=== PATIENT | female | born 1955 | race Caucasian/White ===

== ENCOUNTER 2018-10-29 23:26 | Emergency (ER) | payer MEDICARE, BC ==
[~2018-10-29] VITALS: Ht 162.6 cm; Wt 70.3 kg
--- NOTE | 2018-10-29 23:34 | NUR ---
PT BIB SELF. COMP OF HAVING "EPIGASTRIC PAIN SINCE YESTERDAY AND FACIAL NUMBNESS THAT STARTED ABOUT 30 MINUTES AGO". PT AOX4. AMBULATORY W.STEADY GAIT. NO SOB NOTED .NO ACUTE DISTRESS AT THIS TIME. AWAITING MD ISLAS.
[2018-10-30 00:13] LABS: BASOPHILS % (AUTO) 0.6 % (0.0-2.0); EOSINOPHILS % (AUTO) 2.6 % (0.0-6.0); HEMATOCRIT 41 % (33-45); LYMPHOCYTES # (AUTO) 2.6 /CMM (0.8-4.8); LYMPHOCYTES % (AUTO) 46.4 % (20.0-44.0); MEAN CORPUSCULAR HGB CONC 34 g/dl (31.0-36.0); MEAN CORPUSCULAR VOLUME 97 fL (82-100); MONOCYTES # (AUTO) 0.4 /CMM (0.1-1.30); MONOCYTES % (AUTO) 7.4 % (2.0-12.0); NEUTROPHILS # (AUTO) 2.4 /CMM (1.8-8.9); PLATELET COUNT (AUTO) 271 /CMM (150-450); RED BLOOD CELL COUNT(AUTO) 4.23 MIL/uL (4.0-5.2); WHITE BLOOD COUNT (AUTO) 5.6 K/uL (4.3-11.0)
--- NOTE | 2018-10-30 00:15 | NUR ---
RADIO AT BEDSIDE.
[2018-10-30 00:32] LABS: CALCIUM, SERUM 9.4 mg/dL (8.5-10.1); CARBON DIOXIDE 29 mmol/L (21-32); CHLORIDE 99 mmol/L (98-107); CREATININE 0.7 mg/dL (0.6-1.3); GLUCOSE 191 mg/dL (74-106); POTASSIUM 3.9 mmol/L (3.5-5.1); SODIUM SERUM 136 mmol/L (136-145); UREA NITROGEN, BLOOD 17 mg/dL (7-18)
[2018-10-30 00:37] LABS: ALANINE AMINOTRANSFERASE 44 U/L (12-78); ALBUMIN 3.9 g/dL (3.4-5.0); ALKALINE PHOSPHATASE 97 U/L (46-116); ASPARTATE AMINOTRANSFERASE 32 U/L (15-37); BILIRUBIN,TOTAL 0.3 mg/dL (0.2-1.0); LIPASE 257 U/L (73-393); TOTAL PROTEIN, SERUM 7.5 g/dL (6.4-8.2)
--- NOTE | 2018-10-30 00:39 | NUR ---
Patient is resting comfortably in bed with eyes closed. Easily aroused. VSS
[2018-10-30] MEDS ORDERED: LIDOCAINE VISCOUS 2% UD 15 ML UDC MM ONE (01:00)
[2018-10-30] MEDS ORDERED: MAG HYDROX/AL HYDROX/SIMETH 30 ML UDC PO ONE (01:00)
[2018-10-30] MEDS ORDERED: MAG HYDROX/AL HYDROX/SIMETH 30 ML UDC ONE (01:02)
[2018-10-30] MEDS ORDERED: LIDOCAINE VISCOUS 2% UD 15 ML UDC ONE (01:02)
[2018-10-30 01:27] VITALS: BP 154/86
== END 2018-10-30 01:42 | disposition home or self-care (01) ==
LOC: ER 23:27
DX: K29.70 Gastritis, unspecified, without bleeding (principal); E11.9 Type 2 diabetes mellitus without complications; Z98.890 Other specified postprocedural states; Z88.8 Allergy status to other drugs, medicaments and biological substances
CPT/HCPCS: 36415; 71045; 80048; 80076; 82962; 83690; 84484; 85025; 85730; 93005; 99284; A4606; Z7610

== ENCOUNTER 2018-12-05 00:33 | Emergency (ER) | payer MEDICARE, BC ==
[~2018-12-05] VITALS: Ht 162.6 cm; Wt 68.0 kg
--- NOTE | 2018-12-05 00:47 | NUR ---
TO ER BED 7 C/C OF GENERALIZED WEAKNESS SINCE "11 O'CLOCK TONIGHT." PT APPEARS ANXIOUS. AA/OX 4. MY HANDS AND FEET ARE SHAKEY, AND MY JAW IS STIFF." NO S/S SOB. SKIN PINK, WARM, DRY. EQUAL [employer] [facility] AND FACIAL SYMMETRY. ABLE TO MOVE ALL EXTREMITIES WELL. AMBULATED TO BED WITH STABLE GAIT. NAD. VSS. STABLE CONDITION. WILL CONTINUE TO MONITOR.
[2018-12-05 01:30] VITALS: BP 132/80
--- NOTE | 2018-12-05 01:43 | NUR ---
AMBULATED TO THE BATHROOM WITH STABLE GAIT. NAD. VSS. STABLE CONDITION.
== END 2018-12-05 01:52 | disposition home or self-care (01) ==
LOC: ER 00:34
DX: F41.9 Anxiety disorder, unspecified (principal); E11.9 Type 2 diabetes mellitus without complications; Z96.651 Presence of right artificial knee joint; Z96.611 Presence of right artificial shoulder joint; Z60.2 Problems related to living alone; Z88.8 Allergy status to other drugs, medicaments and biological substances
CPT/HCPCS: 82962-TC

== ENCOUNTER 2019-11-13 13:48 | Emergency (ER) | payer MEDICARE, BC ==
[~2019-11-13] VITALS: Ht 157.5 cm; Wt 65.3 kg
[2019-11-13 14:24] LABS: BASOPHILS % (AUTO) 0.3 % (0.0-2.0); EOSINOPHILS % (AUTO) 1.2 % (0.0-6.0); HEMATOCRIT 39 % (33-45); HEMOGLOBIN 13.4 g/dL (11.5-14.8); LYMPHOCYTES # (AUTO) 1.6 /CMM (0.8-4.8); LYMPHOCYTES % (AUTO) 26.3 % (20.0-44.0); MEAN CORPUSCULAR HGB CONC 34 g/dl (31.0-36.0); MEAN CORPUSCULAR VOLUME 97 fL (82-100); MONOCYTES # (AUTO) 0.4 /CMM (0.1-1.30); NEUTROPHILS % (AUTO) 66.2 % (43.0-81.0); PLATELET COUNT (AUTO) 252 /CMM (150-450); RED BLOOD CELL COUNT(AUTO) 4.04 MIL/uL (4.0-5.2)
[2019-11-13 14:31] LABS: CALCIUM, SERUM 9.3 mg/dL (8.5-10.1); CARBON DIOXIDE 29 mmol/L (21-32); CHLORIDE 103 mmol/L (98-107); CREATININE 0.6 mg/dL (0.6-1.3); GLUCOSE 118 mg/dL (74-106); POTASSIUM 3.8 mmol/L (3.5-5.1); SODIUM SERUM 139 mmol/L (136-145); UREA NITROGEN, BLOOD 12 mg/dL (7-18)
[2019-11-13] MEDS ORDERED: IBUP-1957 PO (14:40)
[2019-11-13] MEDS ORDERED: CHOL200038 PO (14:40)
[2019-11-13] MEDS ORDERED: MULT-447 PO (14:40)
[2019-11-13] MEDS ORDERED: IPRATROPIUM NEB FS 0.5 MG/2.5 ML AMPUL.NEB ONE (14:53)
[2019-11-13] MEDS ORDERED: ALBUTEROL FS 2.5 MG/3 ML VIAL.NEB ONE (14:53)
[2019-11-13] MEDS ORDERED: ALBUTEROL FS 2.5 MG/3 ML VIAL.NEB NEB ONE (15:00)
[2019-11-13] MEDS ORDERED: IPRATROPIUM NEB FS 0.5 MG/2.5 ML AMPUL.NEB NEB ONE (15:00)
--- NOTE | 2019-11-13 15:08 | NUR ---
RT Pt became extremely anxious and shakey 8 minutes into HHN tx. Pt requested to stop HHN tx and refuse to continue. Breathe sounds have improved with no SOB noted. Addendum: 11/13/19 at 1521 by MIAH JAIME RT Amended: Links added.
--- NOTE | 2019-11-13 15:24 | NUR ---
NAD Patient discharged to home in stable condition. Written and verbal after care instructions given. Patient verbalizes understanding of instruction.
[2019-11-13 15:25] VITALS: BP 122/70
== END 2019-11-13 15:26 | disposition home or self-care (01) ==
LOC: ER 13:48
DX: J20.9 Acute bronchitis, unspecified (principal); E11.9 Type 2 diabetes mellitus without complications; Z98.890 Other specified postprocedural states; Z88.6 Allergy status to analgesic agent; Z60.2 Problems related to living alone; Z79.899 Other long term (current) drug therapy
CPT/HCPCS: 36415; 71045-TC; 80048-TC; 82962-TC; 84484-TC; 85025-TC

== ENCOUNTER 2020-07-25 17:32 | Emergency (ER) | payer MEDICARE, BC ==
[~2020-07-25] VITALS: Ht 160 cm; Wt 70.3 kg
[~2020-07-25 17:32] MED LIST: CHOL200038 PO; IBUP-1957 PO; MULT-447 PO
[2020-07-25] MEDS ORDERED: IV NS 0.9% 1,000 ML BAG IV ONE (18:00)
[2020-07-25] MEDS ORDERED: ACETAMINOPHEN ES 500 MG TABLET PO ONE (18:00)
[2020-07-25 18:26] LABS: BASOPHILS % (AUTO) 0.9 % (0.0-2.0); EOSINOPHILS % (AUTO) 0.6 % (0.0-6.0); HEMATOCRIT 41 % (33-45); LYMPHOCYTES % (AUTO) 29.6 % (20.0-44.0); MEAN CORPUSCULAR HGB CONC 34 g/dl (31.0-36.0); MEAN CORPUSCULAR VOLUME 97 fL (82-100); MONOCYTES % (AUTO) 5.4 % (2.0-12.0); NEUTROPHILS % (AUTO) 63.5 % (43.0-81.0); PLATELET COUNT (AUTO) 265 /CMM (150-450); RED BLOOD CELL COUNT(AUTO) 4.26 MIL/uL (4.0-5.2)
[2020-07-25 18:27] LABS: BASOPHILS # (AUTO) 0.1 /CMM (0.0-0.2); LYMPHOCYTES # (AUTO) 1.8 /CMM (0.8-4.8); MONOCYTES # (AUTO) 0.3 /CMM (0.1-1.30); NEUTROPHILS # (AUTO) 3.8 /CMM (1.8-8.9)
[2020-07-25] MEDS ORDERED: FAMOTIDINE/PF INJ 20 MG/2 ML VIAL IV ONE ×2 (18:30→18:48)
[2020-07-25] MEDS ORDERED: KETOROLAC TROMETHAMINE INJ 30 MG/ML VIAL IV ONE (18:30)
[2020-07-25] MEDS ORDERED: METOCLOPRAMIDE HCL 10 MG/2 ML VIAL IV ONE (18:30)
[2020-07-25 18:43] LABS: ALANINE AMINOTRANSFERASE 51 U/L (12-78); ALBUMIN 4.4 g/dL (3.4-5.0); ALKALINE PHOSPHATASE 101 U/L (46-116); ASPARTATE AMINOTRANSFERASE 32 U/L (15-37); BILIRUBIN,DIRECT 0.1 mg/dL (0.0-0.2); BILIRUBIN,TOTAL 0.4 mg/dL (0.2-1.0); CALCIUM, SERUM 9.9 mg/dL (8.5-10.1); CARBON DIOXIDE 26 mmol/L (21-32); CHLORIDE 99 mmol/L (98-107); CREATININE 0.7 mg/dL (0.6-1.3); GLUCOSE 130 mg/dL (74-106); POTASSIUM 3.7 mmol/L (3.5-5.1); SODIUM SERUM 134 mmol/L (136-145); TOTAL PROTEIN, SERUM 7.5 g/dL (6.4-8.2); UREA NITROGEN, BLOOD 11 mg/dL (7-18)
[2020-07-25] MEDS ORDERED: METOCLOPRAMIDE HCL 10 MG/2 ML VIAL ONE (18:48)
[2020-07-25] MEDS ORDERED: ACETAMINOPHEN ES 500 MG TABLET ONE (18:48)
[2020-07-25] MEDS ORDERED: KETOROLAC TROMETHAMINE 15 MG/ML VIAL ONE (18:48)
--- NOTE | 2020-07-25 19:05 | NUR ---
REPORT RECEIVED FROM [facility] RN
--- NOTE | 2020-07-25 19:19 | NUR ---
PT BIB SELF C/O HEADACHE, SOB, BACK PAIN, CHEST "DISCOMFORT", NAUSEA, POOR APPETITE TODAY. RESP APPEARS EVEN UNLABORED. SKIN WARM DRY. AMBULATORY STEADY GAIT. NAD NOTED.
--- NOTE | 2020-07-25 19:26 | NUR ---
AMBULATED TO RESTROOM WITH STEADY GAIT
--- NOTE | 2020-07-25 19:30 | NUR ---
URINE COLLECTED AND SENT TO LAB
--- NOTE | 2020-07-25 19:33 | NUR ---
PT AAOX4, VSS, RESPIRATIONS EVEN AND UNLABORED ON RA W/ NAD NOTED. 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 CALL LIGHT WITHIN REACH. WILL CONTINUE TO MONITOR FOR SAFETY.
[2020-07-25 19:49] LABS: APPEARANCE,URINE Clear (CLEAR); BILIRUBIN,URINE Negative (NEGATIVE); BLOOD, URINE Trace-intact Ery/uL (NEGATIVE); COLOR,URINE Yellow (YELLOW); KETONES,URINE Negative (NEGATIVE); LEUKOCYTE ESTERASE ,URINE Negative (NEGATIVE); NITRITE, URINE Negative (NEGATIVE); PROTEIN,URINE Negative (NEGATIVE); UGLUCOSE Negative (NEGATIVE); UROBILINOGEN,URINE 0.2 EU/dL (0.2)
[2020-07-25 20:10] LABS: BACTERIA,URINE Few /HPF (None Seen); RBC,URINE 0-2 /HPF (0-2); SQUAMOUS EPITHELIAL CELL,UR Few /HPF (None Seen); WBC,URINE 0-2 /HPF (0-3)
[2020-07-25 20:19] VITALS: BP 151/84
--- NOTE | 2020-07-25 20:19 | NUR ---
Patient discharged to home in stable condition. Written and verbal after care instructions given. Patient verbalizes understanding of instruction.IV removed. Catheter intact and site benign. Pressure and 4x4 applied to site. No bleeding noted.
== END 2020-07-25 20:20 | disposition home or self-care (01) ==
LOC: ER 17:43
DX: G43.909 Migraine, unspecified, not intractable, without status migrainosus (principal); Z20.828 Contact with and (suspected) exposure to other viral communicable diseases; R06.02 Shortness of breath; I49.3 Ventricular premature depolarization; F17.200 Nicotine dependence, unspecified, uncomplicated; E11.9 Type 2 diabetes mellitus without complications
CPT/HCPCS: 36415; 71045; 80048; 80076; 81001; 83605; 84145; 84484; 85025; 85378; 85730; 87040 ×2; 87086; 93005; 96361; 96374; 96375; 99285; J1885; J2765; J3490; J7030; 81000-TC; C9803-CS; U0003-CS

== ENCOUNTER 2020-10-29 17:19 | Emergency (ER) | payer MEDICARE, BC ==
[~2020-10-29] VITALS: Ht 160 cm; Wt 63.5 kg
--- NOTE | 2020-10-29 17:59 | NUR ---
EKG NOTED BY DR SMITH, BACK TO WR TO WAIT FOR ER BED
[2020-10-29] MEDS ORDERED: KETOROLAC TROMETHAMINE 15 MG/ML VIAL ONE (18:57)
[2020-10-29] MEDS ORDERED: LORAZEPAM 0.5 MG TABLET ONE (18:58)
[2020-10-29] MEDS ORDERED: LORAZEPAM 1 MG TABLET PO ONE (19:00)
[2020-10-29] MEDS ORDERED: KETOROLAC TROMETHAMINE INJ 30 MG/ML VIAL IM ONE (19:00)
--- NOTE | 2020-10-29 19:11 | NUR ---
Patient discharged to home in stable condition. Written and verbal after care instructions given. Patient verbalizes understanding of instruction.
[2020-10-29 19:12] VITALS: BP 122/75
== END 2020-10-29 19:13 | disposition home or self-care (01) ==
LOC: ER 17:22
DX: G43.909 Migraine, unspecified, not intractable, without status migrainosus (principal); E11.9 Type 2 diabetes mellitus without complications; F41.9 Anxiety disorder, unspecified; F17.200 Nicotine dependence, unspecified, uncomplicated; Z98.890 Other specified postprocedural states; Z88.8 Allergy status to other drugs, medicaments and biological substances; Z60.2 Problems related to living alone; Z79.899 Other long term (current) drug therapy
CPT/HCPCS: 93005; 96372; 99283; J1885

== ENCOUNTER 2021-06-11 06:21 | Emergency (ER) | payer MEDICARE, BC ==
[~2021-06-11] VITALS: Ht 157.5 cm; Wt 61.2 kg
--- NOTE | 2021-06-11 06:35 | NUR ---
PATIENT BIBSELF WITH C/O "FEELING HOT AND COLD ON LEFT CHEEK AND LEFT EAR SINCE LAST NIGHT". NO FACIAL DROOP OR SLURRED SPEECH NOTED. AMBULATORY W/ STEADY GAITS. PATIENT IS A/O X 4, RR EVEN AND UNLABORED NO SIGNS OF SOB NOTED. PATIENT CONNCETED TO CARDAIC MONITOR AND POX.
[2021-06-11] MEDS ORDERED: MAG HYDROX/AL HYDROX/SIMETH 30 ML UDC ONE (06:57)
[2021-06-11] MEDS: MAG HYDROX/AL HYDROX/SIMETH 30 ML UDC PO ONE (06:59)
[2021-06-11 07:09] LABS: BASOPHILS % (AUTO) 0.2 % (0.0-2.0); HEMATOCRIT 38 % (33-45); HEMOGLOBIN 13.2 g/dL (11.5-14.8); LYMPHOCYTES # (AUTO) 1.8 K/uL (0.8-4.8); LYMPHOCYTES % (AUTO) 25.4 % (20.0-44.0); MEAN CORPUSCULAR HGB CONC 35 g/dl (31.0-36.0); MEAN CORPUSCULAR VOLUME 97 fL (82-100); MONOCYTES # (AUTO) 0.4 K/uL (0.1-1.30); MONOCYTES % (AUTO) 5.1 % (2.0-12.0); NEUTROPHILS # (AUTO) 4.7 K/uL (1.8-8.9); NEUTROPHILS % (AUTO) 68.3 % (43.0-81.0); PLATELET COUNT (AUTO) 233 K/uL (150-450); RED BLOOD CELL COUNT(AUTO) 3.94 MIL/uL (4.0-5.2); WHITE BLOOD COUNT (AUTO) 6.9 K/uL (4.3-11.0)
[2021-06-11 07:13] LABS: CALCIUM, SERUM 9.1 mg/dL (8.5-10.1); CARBON DIOXIDE 28 mmol/L (21-32); CHLORIDE 102 mmol/L (98-107); CREATININE 0.9 mg/dL (0.6-1.3); GLUCOSE 144 mg/dL (74-106); POTASSIUM 3.8 mmol/L (3.5-5.1); SODIUM SERUM 137 mmol/L (136-145); UREA NITROGEN, BLOOD 16 mg/dL (7-18)
[2021-06-11 07:20] LABS: ALANINE AMINOTRANSFERASE 61 U/L (12-78); ALBUMIN 3.7 g/dL (3.4-5.0); ALKALINE PHOSPHATASE 82 U/L (46-116); ASPARTATE AMINOTRANSFERASE 32 U/L (15-37); BILIRUBIN,DIRECT 0.1 mg/dL (0.0-0.2); BILIRUBIN,TOTAL 0.4 mg/dL (0.2-1.0); LIPASE 101 U/L (73-393); TOTAL PROTEIN, SERUM 6.7 g/dL (6.4-8.2)
[2021-06-11] MEDS ORDERED: METOCLOPRAMIDE HCL 10 MG/2 ML VIAL ONE (07:36)
[2021-06-11] MEDS ORDERED: IBUPROFEN 600 MG TABLET ONE (07:36)
[2021-06-11] MEDS: METOCLOPRAMIDE HCL 10 MG/2 ML VIAL IV ONE (07:40)
[2021-06-11] MEDS: IBUPROFEN 600 MG TABLET PO ONE (07:40)
--- NOTE | 2021-06-11 08:26 | NUR ---
PATIENT A/OX4, BREATHING EVEN AND UNLABORED, NO SOB NOTED, NEEDS ATTENDED. IV removed. Catheter intact and site benign. Pressure and 4x4 applied to site. No bleeding noted.Patient discharged to home in stable condition. Written and verbal after care instructions given. Patient verbalizes understanding of instruction.
[2021-06-11 08:27] VITALS: BP 111/72
== END 2021-06-11 08:28 | disposition home or self-care (01) ==
LOC: ER 06:30
DX: R51.9 Headache, unspecified (principal); R10.13 Epigastric pain; R42 Dizziness and giddiness; R00.1 Bradycardia, unspecified; E11.9 Type 2 diabetes mellitus without complications; F41.9 Anxiety disorder, unspecified; F17.200 Nicotine dependence, unspecified, uncomplicated; Z98.890 Other specified postprocedural states; Z88.6 Allergy status to analgesic agent; Z60.2 Problems related to living alone; Z79.899 Other long term (current) drug therapy
CPT/HCPCS: 36415; 80048; 80076; 83690; 84484; 85025; 93005; 96374; 99284; J2765

== ENCOUNTER 2021-09-11 23:54 | Emergency (ER) | payer MEDICARE, BC ==
[~2021-09-11] VITALS: Ht 157.5 cm; Wt 65.3 kg
--- NOTE | 2021-09-12 00:03 | NUR ---
BIB SELF C/O HYPERTENSION. STATES HER BASLINE SYSTOLIC BP IS BETWEEN 100-110 AND THAT HER BP WAS IN THE 130S SYSTOLIC AND WAS CONCERNED. PT IS PRESCRIBED PROPANOLOL AND TOOK 15MG TOTAL TODAY. PT PLACED ON A MONITOR BP 136/62. BREATHING IS EVEN AND UNLABORED DENIES C/P SOB AND N/V.
[2021-09-12 00:29] LABS: HEMOGLOBIN 13.4 g/dL (11.5-14.8); MEAN CORPUSCULAR HGB CONC 34 g/dl (31.0-36.0)
[2021-09-12 00:33] LABS: HEMATOCRIT 39 % (33-45); LYMPHOCYTES % (AUTO) 47.5 % (20.0-44.0); MEAN CORPUSCULAR VOLUME 96 fL (82-100); MONOCYTES % (AUTO) 5.9 % (2.0-12.0); NEUTROPHILS % (AUTO) 45.2 % (43.0-81.0); PLATELET COUNT (AUTO) 260 K/uL (150-450); RED BLOOD CELL COUNT(AUTO) 4.07 MIL/uL (4.0-5.2); WHITE BLOOD COUNT (AUTO) 5.2 K/uL (4.3-11.0)
[2021-09-12 00:34] LABS: BASOPHILS % (AUTO) 0.5 % (0.0-2.0); EOSINOPHILS % (AUTO) 0.9 % (0.0-6.0); LYMPHOCYTES # (AUTO) 2.5 K/uL (0.8-4.8); MONOCYTES # (AUTO) 0.3 K/uL (0.1-1.30); NEUTROPHILS # (AUTO) 2.4 K/uL (1.8-8.9)
[2021-09-12 00:43] LABS: CALCIUM, SERUM 9.4 mg/dL (8.5-10.1); CARBON DIOXIDE 31 mmol/L (21-32); CHLORIDE 101 mmol/L (98-107); CREATININE 0.8 mg/dL (0.6-1.3); GLUCOSE 147 mg/dL (74-106); POTASSIUM 3.9 mmol/L (3.5-5.1); SODIUM SERUM 139 mmol/L (136-145); UREA NITROGEN, BLOOD 25 mg/dL (7-18)
--- NOTE | 2021-09-12 01:26 | NUR ---
Patient discharged to home in stable condition. Written and verbal after care instructions given. Patient verbalizes understanding of instruction. All V/S stable at time of discharge.
[2021-09-12 01:30] VITALS: BP 110/63
== END 2021-09-12 01:31 | disposition admitted as inpatient to this hospital (09) ==
LOC: ER 23:57
DX: I10 Essential (primary) hypertension (principal); F41.9 Anxiety disorder, unspecified; E11.9 Type 2 diabetes mellitus without complications; F17.200 Nicotine dependence, unspecified, uncomplicated; Z98.890 Other specified postprocedural states; Z88.8 Allergy status to other drugs, medicaments and biological substances; Z60.2 Problems related to living alone; Z79.899 Other long term (current) drug therapy
CPT/HCPCS: 36415; 71045-TC; 80048-TC; 84484-TC; 85025-TC

== ENCOUNTER 2023-07-07 07:01 | Emergency (ER) | payer MEDICARE, BC ==
[~2023-07-07] VITALS: Ht 157.5 cm; Wt 63.5 kg
[2023-07-07] MEDS ORDERED: IV NS 0.9% 1,000 ML BAG IV ONE (08:00)
[2023-07-07 08:19] LABS: BASOPHILS % (AUTO) 0.3 % (0.0-2.0); EOSINOPHILS # (AUTO) 0.1 K/uL (0.0-0.7); EOSINOPHILS % (AUTO) 1.6 % (0.0-6.0); HEMATOCRIT 37 % (33-45); HEMOGLOBIN 12.5 g/dL (11.5-14.8); LYMPHOCYTES # (AUTO) 1.4 K/uL (0.8-4.8); LYMPHOCYTES % (AUTO) 27.1 % (20.0-44.0); MEAN CORPUSCULAR HEMOGLOBIN 33 PG (26.0-33.0); MEAN CORPUSCULAR HGB CONC 34 g/dl (31.0-36.0); MEAN CORPUSCULAR VOLUME 96 fL (82-100); MONOCYTES # (AUTO) 0.3 K/uL (0.1-1.30); MONOCYTES % (AUTO) 5.8 % (2.0-12.0); NEUTROPHILS # (AUTO) 3.4 K/uL (1.8-8.9); NEUTROPHILS % (AUTO) 65.2 % (43.0-81.0); PLATELET COUNT (AUTO) 308 K/uL (150-450); RED BLOOD CELL COUNT(AUTO) 3.83 MIL/uL (4.0-5.2); RED CELL DISTRIBUTION WIDTH 12.2 % (11.5-15.0); WHITE BLOOD COUNT (AUTO) 5.2 K/uL (4.3-11.0)
[2023-07-07 08:30] LABS: CALCIUM, SERUM 9.4 mg/dL (8.5-10.1); CARBON DIOXIDE 27 mmol/L (21-32); CHLORIDE 99 mmol/L (98-107); CREATININE 0.7 mg/dL (0.6-1.3); GLUCOSE 185 mg/dL (74-106); POTASSIUM 3.9 mmol/L (3.5-5.1); SODIUM SERUM 135 mmol/L (136-145); UREA NITROGEN, BLOOD 18 mg/dL (7-18)
[2023-07-07 09:11] LABS: APPEARANCE,URINE CLEAR (CLEAR); BILIRUBIN,URINE NEGATIVE (NEGATIVE); BLOOD, URINE TRACE-INTA Ery/uL (NEGATIVE); COLOR,URINE YELLOW (YELLOW); KETONES,URINE NEGATIVE (NEGATIVE); LEUKOCYTE ESTERASE ,URINE NEGATIVE (NEGATIVE); NITRITE, URINE NEGATIVE (NEGATIVE); PROTEIN,URINE NEGATIVE (NEGATIVE); UGLUCOSE NEGATIVE (NEGATIVE); UROBILINOGEN,URINE 0.2 EU/dL (0.2)
[2023-07-07 09:18] LABS: ADD URINE CULTURE NO; BACTERIA,URINE Rare /HPF (None Seen); RBC,URINE 0-2 /HPF (0-2); SQUAMOUS EPITHELIAL CELL,UR Few /HPF (None Seen); WBC,URINE 0-2 /HPF (0-3)
[2023-07-07 10:52] VITALS: BP 122/62; TEMP 98.1; O2SAT 100
== END 2023-07-07 11:00 | disposition home or self-care (01) ==
LOC: ER 07:01
DX: E11.65 Type 2 diabetes mellitus with hyperglycemia (principal); I10 Essential (primary) hypertension; R07.89 Other chest pain; F41.9 Anxiety disorder, unspecified; F17.200 Nicotine dependence, unspecified, uncomplicated; Z98.890 Other specified postprocedural states; Z79.899 Other long term (current) drug therapy; Z60.2 Problems related to living alone; Z88.1 Allergy status to other antibiotic agents
CPT/HCPCS: 99285; 96360; 71045; 93005; 85025; 80048; 81001; 36415; 84484 ×2; J7030

== ENCOUNTER 2023-09-16 06:10 | Emergency (ER) | payer MEDICARE, BC ==
[~2023-09-16] VITALS: Ht 157.5 cm; Wt 61.2 kg
[2023-09-16] MEDS ORDERED: KETOROLAC TROMETHAMINE 15 MG/ML VIAL ONE (06:52)
[2023-09-16] MEDS ORDERED: KETOROLAC TROMETHAMINE INJ 30 MG/ML VIAL IM ONE (07:00)
[2023-09-16] MEDS ORDERED: IBUP-1955 PO (07:10)
[2023-09-16 07:26] VITALS: TEMP 98.8
[2023-09-16] MEDS ORDERED: IV NS 0.9% 1,000 ML BAG IV ONE (08:00)
[2023-09-16 08:05] VITALS: BP 121/82; O2SAT 99
== END 2023-09-16 08:06 | disposition home or self-care (01) ==
LOC: ER 06:19
DX: R51.9 Headache, unspecified (principal); I10 Essential (primary) hypertension; E11.9 Type 2 diabetes mellitus without complications; F41.9 Anxiety disorder, unspecified; F17.200 Nicotine dependence, unspecified, uncomplicated; Z98.890 Other specified postprocedural states; Z79.899 Other long term (current) drug therapy; Z60.2 Problems related to living alone; Z88.1 Allergy status to other antibiotic agents
CPT/HCPCS: 99283; 96372; 93005; J1885

== ENCOUNTER 2023-09-30 17:54 | Emergency (ER) | payer MEDICARE, BC ==
[~2023-09-30] VITALS: Ht 157.5 cm; Wt 59.9 kg
[~2023-09-30 17:54] MED LIST changes: +IBUP-1955 PO
[2023-09-30 18:12] VITALS: BP 154/82; TEMP 97.8; O2SAT 100
[2023-09-30] MEDS ORDERED: diphenhydrAMINE HCL 25 MG CAPSULE PO ONE (18:30)
[2023-09-30] MEDS ORDERED: ACETAMINOPHEN ES 500 MG TABLET PO ONE (18:30)
[2023-09-30] MEDS ORDERED: METOCLOPRAMIDE HCL 10 MG TABLET PO ONE (18:30)
[2023-09-30] MEDS ORDERED: ACETAMINOPHEN ES 500 MG TABLET ONE (18:41)
[2023-09-30] MEDS ORDERED: diphenhydrAMINE HCL 25 MG CAPSULE ONE (18:41)
[2023-09-30] MEDS ORDERED: METOCLOPRAMIDE HCL 10 MG TABLET ONE (18:41)
== END 2023-09-30 18:46 | disposition left against medical advice (07) ==
LOC: ER 17:54
DX: G43.909 Migraine, unspecified, not intractable, without status migrainosus (principal); I10 Essential (primary) hypertension; E11.9 Type 2 diabetes mellitus without complications; F41.9 Anxiety disorder, unspecified; F17.200 Nicotine dependence, unspecified, uncomplicated; Z79.899 Other long term (current) drug therapy; Z98.890 Other specified postprocedural states; Z60.2 Problems related to living alone; Z88.1 Allergy status to other antibiotic agents
CPT/HCPCS: J8597; Q0163

== ENCOUNTER 2025-08-19 20:10 | Emergency (ER) | payer MEDICARE, BC ==
[~2025-08-19] VITALS: Ht 160 cm; Wt 63.0 kg
[2025-08-19] MEDS: IV NS 0.9% 1,000 ML BAG IV ONE (20:48)
[2025-08-19 20:53] LABS: PLATELET COUNT (AUTO) 325 K/uL (150-450); RED BLOOD CELL COUNT(AUTO) 4.11 MIL/uL (4.0-5.2); RED CELL DISTRIBUTION WIDTH 12.2 % (11.5-15.0); WHITE BLOOD COUNT (AUTO) 5.5 K/uL (4.3-11.0)
[2025-08-19] MEDS ORDERED: MAG HYDROX/AL HYDROX/SIMETH 30 ML UDC ONE (20:55)
[2025-08-19] MEDS ORDERED: LIDOCAINE VISCOUS 2% UD 15 ML UDC ONE (20:55)
[2025-08-19 20:58] LABS: CALCIUM, SERUM 9.2 mg/dL (8.5-10.1); CREATININE 0.8 mg/dL (0.6-1.3); SODIUM SERUM 135 mmol/L (136-145); UREA NITROGEN, BLOOD 15 mg/dL (7-18)
[2025-08-19] MEDS: MAG HYDROX/AL HYDROX/SIMETH 30 ML UDC PO ONE (20:58)
[2025-08-19] MEDS: LIDOCAINE VISCOUS 2% UD 15 ML UDC MM ONE (20:58)
[2025-08-19 21:11] LABS: NT-PRO BNP 143 pg/mL (0-125)
[2025-08-19] MEDS ORDERED: ALPRAZOLAM 0.25 MG TABLET ONE (21:27)
[2025-08-19] MEDS: ALPRAZOLAM 0.25 MG TABLET PO ONE (21:28)
[2025-08-19 22:57] VITALS: BP 149/82; TEMP 98.8; O2SAT 99
== END 2025-08-19 22:58 | disposition home or self-care (01) ==
LOC: ER 20:22
DX: R07.89 Other chest pain (principal); I10 Essential (primary) hypertension; E11.9 Type 2 diabetes mellitus without complications; F17.200 Nicotine dependence, unspecified, uncomplicated; F41.9 Anxiety disorder, unspecified; K21.9 Gastro-esophageal reflux disease without esophagitis; Z88.5 Allergy status to narcotic agent
CPT/HCPCS: 99285; 96360; 71045; 93005 ×2; 85025; 80048; 36415; 84484; 83880; J7030